=== PATIENT | male | born 1975 | race Caucasian/White ===

== ENCOUNTER 2017-12-13 12:20 | Emergency (ER) | payer BC ==
[~2017-12-13] VITALS: Ht 172.7 cm; Wt 80.0 kg
[~2017-12-13 12:20] MED LIST: FAMO40TA73 PO; SIME80TA5 PO
[2017-12-13] MEDS ORDERED: benoxinate/fluorescein ophth drops 5ml bottle LEFTEYE ONE (13:15)
[2017-12-13] MEDS ORDERED: proparacaine 0.5% ophthalmic drops 15ml LEFTEYE ONE ×2 (13:20→14:20)
[2017-12-13] MEDS ORDERED: PROPARACAINE/FLUORESCEIN ophthalmic drops 5ml bottle LEFTEYE ONE (13:30)
[2017-12-13] MEDS ORDERED: polymyxin B sulf/tmp ophth drops 10ml LEFTEYE STA (14:00)
[2017-12-13] MEDS ORDERED: POLOS LEFTEYE (14:03)
[2017-12-13 14:36] VITALS: BP 149/87
== END 2017-12-13 14:39 | disposition home or self-care (01) ==
LOC: ER 12:21
DX: T15.02XA Foreign body in cornea, left eye, initial encounter (principal); Z79.899 Other long term (current) drug therapy; X58.XXXA Exposure to other specified factors, initial encounter; Y93.H2 Activity, gardening and landscaping; Y92.89 Other specified places as the place of occurrence of the external cause; Y99.9 Unspecified external cause status
CPT/HCPCS: 65222; 99283; 99284